=== PATIENT | female | born 1940 | race Hispanic/Latino ===

== ENCOUNTER → 2017-08-03 | Outpatient (CLI) | payer OTHER ==
[~2017-08-03] MED LIST: ALEN70TA2 PO; ALEN70TA47 PO; CHOL200074 PO; DULO30CA2 PO; DULO30CA51 PO; ENOX40DI8 SQ; FERR324T10 PO; GABA-529 PO; GLIP5POW MC; GLIP5TAB11 PO; HYDR-2132 PO; HYDR500C2 PO; LOSA50TA37 PO; METF10004 PO; METF500T6 PO; METO25TA3 PO; METO25TA6 PO; PRAV40TA3 PO; REGADENOSON 0.4 MG/5 ML PF SYG IVP ONE; TRAM-355 PO; TRAM1TAB PO; WARF7.5T49 PO
== END | disposition home or self-care (01) ==
LOC: SHCH 08:57
PROVIDERS: ATTEND Internal Medicine Cardiovascular Disease
DX: R06.02 Shortness of breath (principal)
CPT/HCPCS: 78452; 93017; 96374; A9500 ×2; J2785

== ENCOUNTER → 2017-08-09 | Outpatient (CLI) | payer OTHER ==
[~2017-08-09] MED LIST changes: -REGADENOSON 0.4 MG/5 ML PF SYG IVP ONE
== END | disposition home or self-care (01) ==
LOC: SHCH 10:32
PROVIDERS: ATTEND Internal Medicine Cardiovascular Disease
DX: R06.02 Shortness of breath (principal); Z95.2 Presence of prosthetic heart valve
CPT/HCPCS: 93306

== ENCOUNTER 2019-05-08 13:56 | Emergency (ER) | payer OTHER ==
[~2019-05-08 13:56] MED LIST changes: +ALEN70TA10 PO; -ALEN70TA47 PO; -DULO30CA51 PO; +DULO30CA52 PO; -LOSA50TA37 PO; +LOSA50TA64 PO; +METF-444 PO; +METF-446 PO; -METF10004 PO; -METF500T6 PO
[2019-05-08 15:00] LABS: BASOPHILS % (AUTO) 0.5 % (0.0-5.0); EOSINOPHILS % (AUTO) 1.1 % (0.0-8.0); HEMATOCRIT 35.9 % (36-48); LYMPHOCYTES % (AUTO) 12.5 % (21.0-51.0); MEAN CORPUSCULAR HEMOGLOBIN 31.5 pg (27.0-33.0); MEAN CORPUSCULAR HGB CONC 32.9 g/dL (32.0-36.0); MEAN CORPUSCULAR VOLUME 95.7 fL (79-99); MONOCYTES % (AUTO) 6.4 % (3.0-13.0); NEUTROPHILS % (AUTO) 79.3 % (40.0-77.0); PLATELET COUNT (AUTO) 318 K/uL (130-400); RED BLOOD CELL COUNT(AUTO) 3.75 MIL/uL (4.00-5.50); RED CELL DISTRIBUTION WIDTH 13.8 % (11.0-15.5); WHITE BLOOD COUNT (AUTO) 8.2 K/uL (4.8-10.8)
[2019-05-08 15:12] LABS: CREATININE 0.7 mg/dL (0.5-1.5); POTASSIUM 3.8 mmol/L (3.5-5.1)
[2019-05-08 15:16] LABS: BILIRUBIN,TOTAL 0.3 mg/dL (0.2-1.0); TOTAL PROTEIN, SERUM 7.4 g/dL (6.0-8.3)
[2019-05-08 15:17] LABS: INR 4.13 (0.85-1.15); PROTHROMBIN TIME 42.2 SEC (9.6-11.6)
[2019-05-08] MEDS ORDERED: KETOROLAC TROMETHAMINE 30MG/ML ONE (15:24)
== END 2019-05-08 16:48 | disposition home or self-care (01) ==
LOC: EDH 13:56
DX: M79.671 Pain in right foot (principal); I10 Essential (primary) hypertension; E11.9 Type 2 diabetes mellitus without complications
CPT/HCPCS: 36415; 71045; 73610; 73630; 80053; 82550; 84484; 85025; 85610; 85730; 93005; 93971; 96372; 99285; J1885

== ENCOUNTER → 2021-03-01 | Outpatient (CLI) | payer OTHER ==
[~2021-03-01] MED LIST changes: -ALEN70TA10 PO; -ALEN70TA2 PO; +ALEN70TA80 PO; +CA C1TAB95 PO; +CYAN50009 PO; +DAPA5TAB PO; -DULO30CA2 PO; +ENOX30DI4 SQ; -ENOX40DI8 SQ; -FERR324T10 PO; +FLUT1AER IH; -GABA-529 PO; -GLIP5TAB11 PO; -HYDR-2132 PO; -METF-446 PO; -METO25TA3 PO; -METO25TA6 PO; +ONDA4TAB10 PO; -TRAM-355 PO; -TRAM1TAB PO
== END | disposition home or self-care (01) ==
LOC: SHCH 14:38
PROVIDERS: ATTEND Internal Medicine Cardiovascular Disease
DX: I11.9 Hypertensive heart disease without heart failure (principal); I34.0 Nonrheumatic mitral (valve) insufficiency; E78.5 Hyperlipidemia, unspecified; Z95.2 Presence of prosthetic heart valve
CPT/HCPCS: 93306; 93356

== ENCOUNTER 2021-08-06 14:51 | Emergency (ER) | payer OTHER ==
[~2021-08-06] VITALS: Ht 162.6 cm; Wt 55.3 kg
[2021-08-06 15:20] LABS: BASOPHILS % (AUTO) 0.2 % (0.0-5.0); HEMATOCRIT 25.2 % (36-48); LYMPHOCYTES % (AUTO) 8.3 % (21.0-51.0); MEAN CORPUSCULAR HEMOGLOBIN 33.5 pg (27.0-33.0); MEAN CORPUSCULAR HGB CONC 32.9 g/dL (32.0-36.0); MEAN CORPUSCULAR VOLUME 101.6 fL (79-99); MONOCYTES % (AUTO) 6.2 % (3.0-13.0); NEUTROPHILS % (AUTO) 84.6 % (40.0-77.0); PLATELET COUNT (AUTO) 308 K/uL (130-400); RED BLOOD CELL COUNT(AUTO) 2.48 MIL/uL (4.00-5.50); RED CELL DISTRIBUTION WIDTH 13.7 % (11.0-15.5)
[2021-08-06] MEDS ORDERED: INSULIN HUMULIN R 100 UNIT/ML 3ML IV ONE (15:30)
[2021-08-06] MEDS ORDERED: 0.9%NACL 1000ML 1,000 ML IV SCH (15:30)
[2021-08-06 15:31] LABS: CREATININE 0.7 mg/dL (0.5-1.5)
[2021-08-06 15:35] LABS: ALBUMIN 3.4 g/dL (3.5-5.0); BILIRUBIN,TOTAL 0.4 mg/dL (0.2-1.0); MAGNESIUM 1.8 mg/dL (1.80-2.40); TOTAL PROTEIN, SERUM 6.7 g/dL (6.0-8.3)
[2021-08-06 15:43] LABS: B-TYPE NATRIURETIC PEPTIDE 166 pg/mL (0-100)
[2021-08-06 15:44] LABS: APPEARANCE,URINE Clear (CLEAR); BILIRUBIN,URINE Negative (NEGATIVE); COLOR,URINE Yellow (YELLOW); GLUCOSE, URINE (UA) >=1000 mg/dL (NEGATIVE); KETONES,URINE 40 mg/dL (NEGATIVE); LEUKOCYTE ESTERASE ,URINE Negative (NEGATIVE); NITRATE,URINE Positive (NEGATIVE); OCCULT BLOOD,URINE Negative (NEGATIVE); PH,URINE 5.5 (5.0-8.0); PROTEIN,URINE Trace mg/dL (NEGATIVE); UROBILINOGEN,URINE 0.2 mg/dL (0.2-1.0)
[2021-08-06 16:04] LABS: BACTERIA,URINE Rare /HPF (None Seen); SQUAMOUS EPITHELIAL CELL,UR Moderate /HPF (0-2); WBC,URINE 0-1 /HPF (0-1); YEAST,URINE BUDDING Few /HPF (None Seen)
[2021-08-06 16:05] LABS: MUCUS,URINE Few LPF (None Seen)
[2021-08-06] MEDS ORDERED: CEFTRIAXONE 1G VIAL ONE (16:13)
[2021-08-06] MEDS ORDERED: CEFTRIAXONE 1G VIAL IVP ONE (16:30)
[2021-08-06 16:31] VITALS: BP 109/52
[2021-08-06] MEDS ORDERED: CEPH500B PO (16:51)
== END 2021-08-06 16:57 | disposition home or self-care (01) ==
LOC: EDH 14:51
DX: E11.9 Type 2 diabetes mellitus without complications (principal); N39.0 Urinary tract infection, site not specified; E86.0 Dehydration; I25.10 Atherosclerotic heart disease of native coronary artery without angina pectoris; Z20.822 Contact with and (suspected) exposure to COVID-19; I11.0 Hypertensive heart disease with heart failure; I50.9 Heart failure, unspecified; Z95.818 Presence of other cardiac implants and grafts; Z79.899 Other long term (current) drug therapy; Z79.84 Long term (current) use of oral hypoglycemic drugs; Z79.01 Long term (current) use of anticoagulants; Z98.890 Other specified postprocedural states
CPT/HCPCS: 36415; 71045; 80053; 81001; 82550; 82948 ×2; 83735; 83880; 84484; 85025; 87077; 87088; 87186; 87635; 87804 ×2; 93005 ×2; 96361; 96374; 96375; 99285; C9803; J0696; J1815; J7030

== ENCOUNTER → 2022-01-16 | Outpatient (CLI) | payer OTHER ==
[~2022-01-16] MED LIST changes: +CEPH500B PO; +IOHEXOL 350 MG/ML 100ML INFUS..BTL IV ONE
== END | disposition home or self-care (01) ==
LOC: RAH 09:32
PROVIDERS: ATTEND Family Medicine
DX: K57.90 Diverticulosis of intestine, part unspecified, without perforation or abscess without bleeding (principal); R10.32 Left lower quadrant pain
CPT/HCPCS: 74178; Q9967

== ENCOUNTER 2022-01-31 16:35 | Emergency (ER) | payer OTHER ==
[~2022-01-31] VITALS: Ht 154.9 cm; Wt 64.9 kg
[~2022-01-31 16:35] MED LIST changes: -IOHEXOL 350 MG/ML 100ML INFUS..BTL IV ONE
[2022-01-31 19:00] VITALS: BP 128/68
[2022-01-31] MEDS ORDERED: ACET-66 PO (19:08)
== END 2022-01-31 19:21 | disposition home or self-care (01) ==
LOC: EDH 16:35
DX: S82.841A Displaced bimalleolar fracture of right lower leg, initial encounter for closed fracture (principal); E11.9 Type 2 diabetes mellitus without complications; I11.0 Hypertensive heart disease with heart failure; I50.9 Heart failure, unspecified; I25.10 Atherosclerotic heart disease of native coronary artery without angina pectoris; Z79.51 Long term (current) use of inhaled steroids; Z79.84 Long term (current) use of oral hypoglycemic drugs; Z95.2 Presence of prosthetic heart valve; Z79.899 Other long term (current) drug therapy; W01.0XXA Fall on same level from slipping, tripping and stumbling without subsequent striking against object, initial encounter; Y93.89 Activity, other specified; Y92.89 Other specified places as the place of occurrence of the external cause; Y99.8 Other external cause status
CPT/HCPCS: 29515; 73610

== ENCOUNTER 2023-02-18 21:11 | Emergency (ER) | payer OTHER ==
[~2023-02-18] VITALS: Ht 157.5 cm; Wt 54.4 kg
[~2023-02-18 21:11] MED LIST changes: +ACET-66 PO; +BENZ200C53 PO
[2023-02-18 21:43] LABS: BASOPHILS # (AUTO) 0.03 K/uL (0.00-0.20); BASOPHILS % (AUTO) 0.3 % (0.0-5.0); EOSINOPHILS # (AUTO) 0.16 K/uL (0.00-0.70); EOSINOPHILS % (AUTO) 1.8 % (0.0-8.0); HEMATOCRIT 36.6 % (36-48); IMMATURE GRANULOCYTE ABSOLUTE 0.05 K/uL (0-1); LYMPHOCYTES # (AUTO) 0.7 K/uL (1.0-4.8); LYMPHOCYTES % (AUTO) 8.3 % (21.0-51.0); MEAN CORPUSCULAR HEMOGLOBIN 34.1 pg (27.0-33.0); MEAN CORPUSCULAR HGB CONC 33.9 g/dL (32.0-36.0); MEAN CORPUSCULAR VOLUME 100.5 fL (79-99); MONOCYTES # (AUTO) 0.5 K/uL (0.1-1.0); NEUTROPHILS # (AUTO) 7.3 K/uL (1.8-7.7); PLATELET COUNT (AUTO) 348 K/uL (130-400); RED BLOOD CELL COUNT(AUTO) 3.64 MIL/uL (4.00-5.50); RED CELL DISTRIBUTION WIDTH 13.7 % (11.0-15.5); WHITE BLOOD COUNT (AUTO) 8.8 K/uL (4.8-10.8)
[2023-02-18 22:00] LABS: SARS-CoV-2, RNA, NAAT NEGATIVE SARS CoV-2 (NEGATIVE)
[2023-02-18 22:00] LABS: ALBUMIN 3.5 g/dL (3.5-5.0); BILIRUBIN,TOTAL 0.3 mg/dL (0.2-1.0); CREATININE 0.9 mg/dL (0.5-1.5); POTASSIUM 5.3 mmol/L (3.5-5.1); TOTAL PROTEIN, SERUM 7.5 g/dL (6.0-8.3)
[2023-02-18 22:05] LABS: INFLUENZA TYPE A Negative For Type A (NEGATIVE); INFLUENZA TYPE B Negative For Type B (NEGATIVE)
[2023-02-18 22:17] LABS: ADD UA MICROSCOPIC YES; APPEARANCE,URINE CLEAR (CLEAR); BILIRUBIN,URINE NEGATIVE (NEGATIVE); COLOR,URINE COLORLESS (YELLOW); GLUCOSE, URINE (UA) >=1000 mg/dL (NEGATIVE); KETONES,URINE 10 mg/dL (NEGATIVE); LEUKOCYTE ESTERASE ,URINE NEGATIVE Leu/uL (NEGATIVE); NITRATE,URINE 1+ (NEGATIVE); PROTEIN,URINE NEGATIVE (NEGATIVE); UROBILINOGEN,URINE 0.2 mg/dL (0.2-1.0)
[2023-02-18 22:19] LABS: BACTERIA,URINE FEW /HPF (None Seen); MUCUS,URINE RARE LPF (None Seen)
[2023-02-18] MEDS ORDERED: ALBUTEROL 0.083% 2.5 MG/3 ML INH IH ONE (23:00)
[2023-02-18] MEDS ORDERED: ACETAMINOPHEN 325 MG TAB ONE (23:04)
[2023-02-18 23:22] VITALS: PULSE 92; RESP 18
[2023-02-18] MEDS ORDERED: ACETAMINOPHEN 325 MG TAB PO ONE (23:30)
[2023-02-18] MEDS ORDERED: ALBUHFA IH (23:43)
[2023-02-18] MEDS ORDERED: AUD IH (23:43)
[2023-02-18 23:54] VITALS: BP 140/49; PULSE 88; RESP 21; O2SAT 96
[2023-02-18 23:58] VITALS: TEMP 99.4
== END 2023-02-19 00:04 | disposition home or self-care (01) ==
LOC: EDH 21:11
DX: J98.01 Acute bronchospasm (principal); E11.65 Type 2 diabetes mellitus with hyperglycemia; J06.9 Acute upper respiratory infection, unspecified; R05.9 Cough, unspecified; E78.00 Pure hypercholesterolemia, unspecified; I48.91 Unspecified atrial fibrillation; Z79.51 Long term (current) use of inhaled steroids; Z79.84 Long term (current) use of oral hypoglycemic drugs; Z79.899 Other long term (current) drug therapy; Z20.822 Contact with and (suspected) exposure to COVID-19
CPT/HCPCS: 99285; 71045; 87635; 84484; 80053; 83880; 83690; 85025; 87077 ×2; 87088; 87186 ×2; 87804 ×2; 81001; 36415; 93005; 94640; C9803

== ENCOUNTER → 2023-05-19 | Outpatient (CLI) | payer OTHER ==
[~2023-05-19] MED LIST changes: +ALBUHFA IH; +AUD IH
== END ==
LOC: SHCH 09:31
PROVIDERS: ATTEND Internal Medicine Cardiovascular Disease
DX: I87.1 Compression of vein (principal); I87.2 Venous insufficiency (chronic) (peripheral)
CPT/HCPCS: 93925; 93970

== ENCOUNTER → 2023-05-26 | Outpatient (CLI) | payer OTHER | END | disposition home or self-care (01) | LOC: SHCH 08:46 | PROVIDERS: ATTEND Internal Medicine Cardiovascular Disease | DX: I08.2 Rheumatic disorders of both aortic and tricuspid valves (principal); R07.9 Chest pain, unspecified; R06.09 Other forms of dyspnea | CPT/HCPCS: 93306 ==

== ENCOUNTER → 2023-08-14 | Outpatient (CLI) | payer OTHER ==
[~2023-08-14] MED LIST changes: +ONDA-243 PO; -ONDA4TAB10 PO
[2023-08-14 12:32] LABS: INR 1.42 (0.85-1.15); PROTHROMBIN TIME 16.3 SEC (9.6-11.6)
== END | disposition home or self-care (01) ==
LOC: LAB 09:15
PROVIDERS: ATTEND Internal Medicine Cardiovascular Disease
DX: I71.40 Abdominal aortic aneurysm, without rupture, unspecified (principal)
CPT/HCPCS: 36415; 85610

== ENCOUNTER → 2023-08-21 | Outpatient (CLI) | payer OTHER ==
[2023-08-21 17:22] LABS: INR 1.85 (0.85-1.15)
== END | disposition home or self-care (01) ==
LOC: LAB 15:29
PROVIDERS: ATTEND Internal Medicine Cardiovascular Disease
DX: Z79.01 Long term (current) use of anticoagulants (principal)
CPT/HCPCS: 36415; 85610

== ENCOUNTER → 2023-08-31 | Outpatient (CLI) | payer OTHER ==
[2023-08-31 15:29] LABS: INR 1.52 (0.85-1.15); PROTHROMBIN TIME 15.9 SEC (9.6-11.6)
== END | disposition home or self-care (01) ==
LOC: LAB 11:33
PROVIDERS: ATTEND Internal Medicine Cardiovascular Disease
DX: Z79.01 Long term (current) use of anticoagulants (principal)
CPT/HCPCS: 36415; 85610

== ENCOUNTER → 2023-09-10 | Outpatient (CLI) | payer OTHER ==
[2023-09-10 16:33] LABS: INR 1.77 (0.85-1.15); PROTHROMBIN TIME 18.3 SEC (9.6-11.6)
== END | disposition home or self-care (01) ==
LOC: LAB 12:04
PROVIDERS: ATTEND Internal Medicine Cardiovascular Disease
DX: Z79.01 Long term (current) use of anticoagulants (principal)
CPT/HCPCS: 36415; 85610

== ENCOUNTER 2023-12-04 10:21 | Observation (INO) | payer OTHER ==
[~2023-12-04] VITALS: Ht 180.3 cm; Wt 50.8 kg
[2023-12-04 10:59] LABS: BASOPHILS # (AUTO) 0.05 K/uL (0.00-0.20); BASOPHILS % (AUTO) 0.6 % (0.0-5.0); EOSINOPHILS # (AUTO) 0.18 K/uL (0.00-0.70); EOSINOPHILS % (AUTO) 2.3 % (0.0-8.0); HEMATOCRIT 37.9 % (36-48); IMMATURE GRANULOCYTE ABSOLUTE 0.03 K/uL (0-1); LYMPHOCYTES # (AUTO) 1.3 K/uL (1.0-4.8); LYMPHOCYTES % (AUTO) 15.8 % (21.0-51.0); MEAN CORPUSCULAR HEMOGLOBIN 32.7 pg (27.0-33.0); MEAN CORPUSCULAR VOLUME 99.2 fL (79-99); MONOCYTES # (AUTO) 0.6 K/uL (0.1-1.0); MONOCYTES % (AUTO) 7.1 % (3.0-13.0); NEUTROPHILS # (AUTO) 5.9 K/uL (1.8-7.7); NEUTROPHILS % (AUTO) 73.8 % (40.0-77.0); PLATELET COUNT (AUTO) 342 K/uL (130-400); RED BLOOD CELL COUNT(AUTO) 3.82 MIL/uL (4.00-5.50); RED CELL DISTRIBUTION WIDTH 15.5 % (11.0-15.5)
[2023-12-04 11:11] LABS: CREATININE 0.5 mg/dL (0.5-1.0); POTASSIUM 4.4 mmol/L (3.5-5.1)
[2023-12-04 12:56] LABS: PARTIAL THROMBOPLASTIN TIME 42.7 SEC (26.3-35.5)
[2023-12-04 13:10] LABS: PROTHROMBIN TIME 60.4 SEC (9.6-11.6)
[2023-12-04 13:11] LABS: INR 6.42 (0.85-1.15)
[2023-12-04] MEDS ORDERED: SEMA3TAB4 PO (15:20)
[2023-12-04] MEDS ORDERED: ATOR40TA69 PO (15:20)
[2023-12-04] MEDS ORDERED: METO-408 PO (15:20)
[2023-12-04] MEDS ORDERED: WARF10TA45 PO (15:20)
[2023-12-04] MEDS ORDERED: EMPA25TA PO (15:20)
[2023-12-04] MEDS ORDERED: GLIP5TAB15 PO (15:20)
[2023-12-04] MEDS ORDERED: LOSA25TA41 PO (15:20)
[2023-12-04 15:32] LABS: INR 6.1 (0.85-1.15); PROTHROMBIN TIME 57.6 SEC (9.6-11.6)
[2023-12-04 17:25] VITALS: O2SAT 97
[2023-12-04 19:04] VITALS: BP 165/82; PULSE 82; RESP 20; TEMP 97.3
[2023-12-04 20:00] VITALS: BP 167/70; PULSE 78; RESP 16; TEMP 97.4; O2SAT 97
[2023-12-04 23:37] LABS: PARTIAL THROMBOPLASTIN TIME 42.3 SEC (26.3-35.5)
[2023-12-04 23:44] VITALS: BP 155/70; PULSE 61; RESP 20; TEMP 98.1
[2023-12-05 00:17] LABS: INR 5.68 (0.85-1.15)
[2023-12-05 00:18] LABS: PROTHROMBIN TIME 53.9 SEC (9.6-11.6)
[2023-12-05] MEDS: PHYTONADIONE 10 MG in 0.9%NACL 50ML 50 ML IVPB ONE (01:24)
[2023-12-05] MEDS ORDERED: ondanSETRON 4MG INJ IVP PRN (03:00)
[2023-12-05] MEDS ORDERED: acetaMINOPHEN 325 MG TAB PO PRN (03:00)
[2023-12-05] MEDS ORDERED: TEMAZepam 15 MG CAPSULE PO PRN (03:00)
[2023-12-05] MEDS ORDERED: acetaMINOPHEN 650 MG SUPPOSITORY RC PRN (03:00)
[2023-12-05] MEDS ORDERED: doCUSate SODIUM 100 MG CAP PO PRN (03:00)
[2023-12-05] MEDS ORDERED: LACTULOSE 20 GM/30 ML UDCUP PO PRN (03:00)
[2023-12-05] MEDS ORDERED: hydrALAZine 20MG/ML VIAL IV PRN (03:00)
[2023-12-05 04:00] VITALS: BP 167/75; PULSE 68; RESP 18; TEMP 98
[2023-12-05 06:14] LABS: BASOPHILS # (AUTO) 0.04 K/uL (0.00-0.20); BASOPHILS % (AUTO) 0.6 % (0.0-5.0); EOSINOPHILS # (AUTO) 0.16 K/uL (0.00-0.70); EOSINOPHILS % (AUTO) 2.3 % (0.0-8.0); HEMATOCRIT 36.7 % (36-48); IMMATURE GRANULOCYTE ABSOLUTE 0.02 K/uL (0-1); LYMPHOCYTES # (AUTO) 1.1 K/uL (1.0-4.8); LYMPHOCYTES % (AUTO) 15.5 % (21.0-51.0); MEAN CORPUSCULAR HEMOGLOBIN 31.8 pg (27.0-33.0); MEAN CORPUSCULAR HGB CONC 32.4 g/dL (32.0-36.0); MEAN CORPUSCULAR VOLUME 98.1 fL (79-99); MONOCYTES # (AUTO) 0.5 K/uL (0.1-1.0); NEUTROPHILS # (AUTO) 5.3 K/uL (1.8-7.7); NEUTROPHILS % (AUTO) 74.3 % (40.0-77.0); PLATELET COUNT (AUTO) 361 K/uL (130-400); RED BLOOD CELL COUNT(AUTO) 3.74 MIL/uL (4.00-5.50); RED CELL DISTRIBUTION WIDTH 15.2 % (11.0-15.5); WHITE BLOOD COUNT (AUTO) 7.1 K/uL (4.8-10.8)
[2023-12-05 06:22] LABS: B-TYPE NATRIURETIC PEPTIDE 432 pg/mL (0-100)
[2023-12-05 06:30] LABS: CREATININE 0.6 mg/dL (0.5-1.0); MAGNESIUM 1.7 mg/dL (1.80-2.40); PHOSPHORUS 4.3 mg/dL (2.5-4.9)
[2023-12-05 06:38] LABS: HEMOGLOBIN A1C 8.9 % (4.0-6.0)
[2023-12-05] MEDS: MAGNESIUM 2GM PREMIX 50ML 50 ML IV PRN (07:35)
[2023-12-05 07:39] LABS: INR 2.04 (0.85-1.15); PROTHROMBIN TIME 20.9 SEC (9.6-11.6)
[2023-12-05 08:00] VITALS: BP 148/67; PULSE 65; RESP 18; TEMP 97.6; O2SAT 100
[2023-12-05 12:00] VITALS: BP 163/72; PULSE 59; RESP 18; TEMP 97.6
== END 2023-12-05 15:43 | disposition home or self-care (01) ==
LOC: EDH 10:21 → OBSVTOIN 14:44 → INTOOBSV 14:44 → EDHIP 14:44 → 4DH 17:25
PROVIDERS: ADMIT Internal Medicine Critical Care Medicine; ATTEND Internal Medicine Critical Care Medicine
DX: E11.65 Type 2 diabetes mellitus with hyperglycemia (principal); I10 Essential (primary) hypertension; I48.91 Unspecified atrial fibrillation; E78.00 Pure hypercholesterolemia, unspecified; R79.1 Abnormal coagulation profile; Z79.01 Long term (current) use of anticoagulants; Z95.2 Presence of prosthetic heart valve; Z79.899 Other long term (current) drug therapy; Z98.890 Other specified postprocedural states
CPT/HCPCS: 99285; 71045; 84484; 80048 ×2; 83880 ×2; 85025 ×2; 85378; 85610 ×4; 85730 ×2; 82948 ×4; 36415 ×2; 73590; 93005; 96366; 96365; 96375; 83036; 84443; 83735; 84100; G0378; J3475; J3430

== ENCOUNTER 2024-03-18 14:14 | Emergency (ER) | payer OTHER ==
[~2024-03-18] VITALS: Ht 157.5 cm; Wt 69.4 kg
[~2024-03-18 14:14] MED LIST changes: -ACET-66 PO; +ATOR40TA69 PO; -BENZ200C53 PO; -CEPH500B PO; -DAPA5TAB PO; +EMPA25TA PO; -ENOX30DI4 SQ; -FLUT1AER IH; -GLIP5POW MC; +GLIP5TAB15 PO; +LOSA25TA41 PO; -LOSA50TA64 PO; +METO-408 PO; -ONDA-243 PO; -PRAV40TA3 PO; +SEMA3TAB4 PO; +WARF10TA45 PO; -WARF7.5T49 PO
--- NOTE | 2024-03-18 14:33 | ERN ---
ED Note History of Present Illness Stated Complaint: FELL, LACERATION Chief Complaint: Mechanical Fall Time Seen by MD: 14:15 Dictation: Patient is a 83-year-old female with a past medical history of diabetes, hypertension, atrial fibrillation, CAD, ordered valve replacement, on Coumadin. Patient brought to the ER after slip and fall at home. Patient described that she was sleeping in the bed and when she would try to wake up she slipped and fell forward hitting her head. She denied loss of consciousness. Patient has a laceration in the supraciliary arch left side, which she described that was bleeding, but has stopped at moment of my evaluation in the emergency department. Allergies: Coded Allergies: No Known Drug Allergies (Verified Allergy, Unknown, 12/05/23) Home Meds Active Scripts Acetaminophen (Tylenol) 500 Mg Tab, 1 TAB PO Q6HPRN PRN for pain or fever for 4 Days, #20 TAB 0 Refills Prov:RAUL KHANNA MD 03/18/24 Albuterol Sulfate (Ventolin Hfa/Proventil Hfa/Proair Hfa) 90 Mcg Puff, 2 PUFF IH Q4H for WHEEZING, #1 INHALER 0 Refills Prov:ZOILA BAGLEY NP 02/18/23 Albuterol Sulfate (Albuterol Sulfate) 2.5 Mg/0.5 Ml Vial.neb, 2.5 MG IH Q6H for wheezing/sob, #20 INH 0 Refills Prov:ZOILA BAGLEY NP 02/18/23 Reported Medications Atorvastatin Calcium (LIPITOR) 40 Mg Tablet, 1 TAB PO DAILY for 30 Days, #30 TAB 0 Refills 12/04/23 Glipizide (Glipizide) 5 Mg Tablet, 1 TAB PO BID for 30 Days, #60 TAB 0 Refills 12/04/23 Metoprolol Succinate (Metoprolol Succinate) 25 Mg Tab.er.24h, 1 TAB PO DAILY for 30 Days, #30 TAB 0 Refills 12/04/23 Semaglutide (Rybelsus) 3 Mg Tablet, 1 TAB PO DAILY for 30 Days, #30 TAB 0 Refills 12/04/23 Empagliflozin (Jardiance) 25 Mg Tablet, 1 TAB PO DAILY for 30 Days, #30 TAB 0 Refills 12/04/23 Warfarin Sodium (Warfarin Sodium) 10 Mg Tablet, 1 TAB PO DAILY for 30 Days, #30 TAB 0 Refills 12/04/23 Losartan Potassium (Losartan Potassium) 25 Mg Tablet, 1 TAB PO DAILY for 30 Days, #30 TAB 0 Refills 12/04/23 Ca Carbonate/Vitamin D3/Vit K (Calcium + D Soft Chewable Tab) 1 Each Tab.chew, 1 EACH PO DAILY, TAB.CHEW 07/30/19 Cyanocobalamin (Vitamin B-12) (Vitamin B12) 5,000 Mcg Tab.rapdis, 1000 MCG PO DAILY, TAB 07/30/19 Alendronate Sodium (Alendronate Sodium) 70 Mg Tablet, 70 MG PO QWEEK for on sunday, TAB 02/12/16 Cholecalciferol (Vitamin D3) (Vitamin D-3) 2,000 Unit Capsule, 1000 UNIT PO DAILY, CAP 02/12/16 Metformin HCl (Metformin HCl) 500 Mg Tablet, 1000 MG PO BIDMEALS, TAB 02/12/16 Duloxetine HCl (Duloxetine HCl) 30 Mg Capsule.dr, 30 MG PO DAILY, CAP 02/12/16 Hydroxyurea (Hydroxyurea) 500 Mg Capsule, 500 MG PO DAILY, CAP 12/17/15 Past Medical History Past Medical History: A-Fib, Diabetes-Type II, High Cholesterol, Hypertension Surgical History: Other Surgical History Other: HX OF HEART REPLACEMENT Family History: Negative Social History: Negative History: Not Applicable Review of System Dictation NEGATIVE EXCEPT PER HPI Constitutional: Negative for fever,chills, and weight loss Eyes: Negative for injury, pain,redness, and discharge ENT: Negative for injury,pain or swelling Cardiovascular: denies chest pain, palpitations, and edema Respiratory: Negative for shortness of breath, cough, and wheezing, Abdomen/GI: Negative for abdominal pain, nausea, vomiting, diarrhea, and constipation Back: Negative for injury and pain : Negative for injury, bleeding and discharge MS/Extremity: Negative for injury and deformity Skin: Negative for rash, and discoloration Neuro: Negative for headache, weakness, numbness, tingling, and seizure Psych: Negative for suicide ideation, homicidal ideation, and hallucinations Initial Vital Sign VS Vital Signs Date Time Temp Pulse Resp B/P (MAP) Pulse Ox O2 Delivery O2 Flow Rate FiO2 03/18/24 14:24 98.1 78 20 85 Room Air 0 Physical Exam Dictation General: awake, alert, NAD Head/Face: Normocephalic, atraumatic Eyes: PERRL, EOMI, vision at baseline ENT: oral cavity clear, TMs clear, no signs of infection Neck: Trachea midline, supple, no nuchal rigidity Cardiovascular: RRR, normal S1/S2, No MRGs, no JVD Respiratory: CTAB, no respiratory distress, No rales or wheezes Abdomen: Soft , no tender Skin: Warm, dry, normal turgor, no rash. Small laceration in the supraciliary arch, left side MS/Extremity: Pulses equal, no cyanosis, neurovascular intact, FROM Neuro: COAx4, GCS 15, strength 5/5, CN 2-12 intact, normal cerebellar exam, normal gait, Psych: Normal behavior, mood, and affect normal Results (Laboratory/Radiology) Laboratory/Radiology Laboratory Tests Test 03/18/24 14:55 White Blood Count 8.0 K/uL (4.8-10.8) Red Blood Count 4.00 MIL/uL (4.00-5.50) Hemoglobin 12.8 g/dL (12.0-16.0) Hematocrit 39.4 % (36-48) Mean Corpuscular Volume 98.5 fL (79-99) Mean Corpuscular Hemoglobin 32.0 pg (27.0-33.0) Mean Corpuscular Hemoglobin Concent 32.5 g/dL (32.0-36.0) Red Cell Distribution Width 15.4 % (11.0-15.5) Platelet Count 492 K/uL (130-400) H Mean Platelet Volume 9.8 fL (7.5-10.5) Immature Granulocyte % (Auto) 0.4 % (0-1) Neutrophils (%) (Auto) 79.4 % (40.0-77.0) H Lymphocytes (%) (Auto) 11.7 % (21.0-51.0) L Monocytes (%) (Auto) 6.7 % (3.0-13.0) Eosinophils (%) (Auto) 1.4 % (0.0-8.0) Basophils (%) (Auto) 0.4 % (0.0-5.0) Neutrophils # (Auto) 6.3 K/uL (1.8-7.7) Lymphocytes # (Auto) 0.9 K/uL (1.0-4.8) L Monocytes # (Auto) 0.5 K/uL (0.1-1.0) Eosinophils # (Auto) 0.11 K/uL (0.00-0.70) Basophils # (Auto) 0.03 K/uL (0.00-0.20) Absolute Immature Granulocyte (auto 0.03 K/uL (0-1) Nucleated Red Blood Cells 0.0 % (0.0-0.19) Prothrombin Time 35.9 SEC (9.6-11.6) *H Prothromb Time International Ratio 3.64 (0.85-1.15) *H Activated Partial Thromboplast Time 37.6 SEC (26.3-35.5) H Sodium Level 136 mmol/L (136-145) Potassium Level 3.9 mmol/L (3.5-5.1) Chloride Level 98 mmol/L (101-111) L Carbon Dioxide Level 31 mmol/L (21-32) Blood Urea Nitrogen 20 mg/dL (7-18) H Creatinine 0.5 mg/dL (0.5-1.0) Glomerular Filtration Rate Calc 94 mL/min (>90) Random Glucose 165 mg/dL (70-105) H Total Calcium 9.5 mg/dL (8.5-10.1) EKG Comment: Rate 72 on AFib control Inferior infarct, old Anterior Q-waves, possibly due to LVH QT 417 ED Course ED Course Orders Procedure Category Date Status Time Cbc With Differential LAB 03/18/24 Complete 14:24 Basic Metabolic Panel LAB 03/18/24 Complete 14:24 Pt And Ptt LAB 03/18/24 Complete 14:24 Ct Head/Brain W/O CT 03/18/24 Resulted Contrast 14:24 Ct Cervical Spine W/O CT 03/18/24 Resulted Contrast 14:24 Acetaminophen 500mg PHA 03/18/24 Complete Tab (Tylenol 500mg T 15:00 Dermabond (Dermabond) PHA 03/18/24 In Process 15:30 Hip Bilat 2vw RAD 03/18/24 Resulted 16:10 12 Lead Ekg Tracing- EKG 03/18/24 Logged Technical 16:43 Current Medications Medications (Trade) Dose Ordered Sig/Emeli Route PRN Reason Start Time Stop Time Status Last Admin Dose Admin Acetaminophen (TYLenol 500MG TAB) 500 mg ONCE ONCE PO 03/18/24 15:00 03/18/24 15:01 DC 03/18/24 15:18 Octyl Cyanoacrylate (Dermabond) 1 each ONCE TP 03/18/24 15:30 04/17/24 15:29 03/18/24 15:18 Vital Signs Date Time Temp Pulse Resp B/P (MAP) Pulse Ox O2 Delivery O2 Flow Rate FiO2 03/18/24 14:24 98.1 78 20 85 Room Air 0 Medical Decision Making MDM 83-year-old female status post fall on Coumadin, no loss of consciousness. Has a small laceration in the supraciliary area. Fall/hit head on Coumadin -INR check -CT head and neck without contrast. Facial Laceration -clean the area and apply Dermabond. Pain medication p.r.n. Tylenol. CT images reviewed no acute abnormalities reports for the head ordered neck. Laboratory reviewed no acute abnormality INR 3.64, patient on Coumadin due to heart valve replacement. CT HEAD/BRAIN W/O CONTRAST HISTORY: Status post fall COMPARISON: None TECHNIQUE: Multiple sequential axial images of the head were obtained from the base of the skull through vertex. Patient was not given contrast through intravenous route. FINDINGS: The ventricles and extraventricular CSF spaces are dilated consistent with cerebral atrophy. Nonspecific white matter changes seen. Old encephalomalacia changes are seen in the right frontal lobe. There is no midline shift, mass effect or herniation. No acute intracranial bleed is seen. Visualized portion of the paranasal sinuses are grossly within normal limits. IMPRESSION: 1. No acute intracranial bleed is seen. 2. Atrophy with white matter changes. HIP BILAT 2VW HISTORY: Status post fall COMPARISON: None TECHNIQUE: 3 images of bilateral hips were obtained. FINDINGS: Bilateral hip prosthesis are seen. Postop changes are seen of the lumbar spine. There is no acute displaced fracture or dislocation. Degenerative changes are seen. IMPRESSION: 1. Findings as described above. Procedure Procedure Dictation: 2 cm supraciliary laceration, the area was irrigated and cleaned. Dermabond was applied DX & DISP Disposition: Discharge Departure Impression: Primary Impression: Fall (on) (from) other stairs and steps, initial encounter Additional Impressions: Laceration, Facial laceration, Anticoagulated on Coumadin Critical Time: 45 minutes Condition: Stable Scripts Acetaminophen (Tylenol) 500 Mg Tab 1 TAB PO Q6HPRN PRN for pain or fever for 4 Days, #20 TAB 0 Refills Prov: RAUL KHANNA MD 03/18/24 Additional Instructions: RETURN TO ER FOR ANY ACUTE OR WORSENING SYMPTOMS. FOLLOW-UP IN 1-2 DAYS WITH PRIMARY PROVIDER FOR RECHECK OF TODAY'S SYMPTOMS. Referrals: CHRISTOPHE POLANCO MD (PCP) Time of Disposition: 16:02 RAUL KHANNA MD Mar 18, 2024 14:33
--- NOTE | 2024-03-18 14:59 | HMCIMG ---
CT HEAD/BRAIN W/O CONTRAST HISTORY: Status post fall COMPARISON: None TECHNIQUE: Multiple sequential axial images of the head were obtained from the base of the skull through vertex. Patient was not given contrast through intravenous route. FINDINGS: The ventricles and extraventricular CSF spaces are dilated consistent with cerebral atrophy. Nonspecific white matter changes seen. Old encephalomalacia changes are seen in the right frontal lobe. There is no midline shift, mass effect or herniation. No acute intracranial bleed is seen. Visualized portion of the paranasal sinuses are grossly within normal limits. IMPRESSION: 1. No acute intracranial bleed is seen. 2. Atrophy with white matter changes. CT was performed with one or more following dose reduction techniques: automated exposure control, adjustment of the mA and kv according to patient's size, or use of a iterative reconstruction technique.
--- NOTE | 2024-03-18 14:59 | HMCIMG ---
CT CERVICAL SPINE W/O CONTRAST HISTORY: Status post fall COMPARISON: None TECHNIQUE: Multiple sequential axial images of the cervical spine were obtained including post processing sagittal and coronal reconstruction images. Patient was not given contrast through intravenous route. FINDINGS: There is reversal of normal lordotic cervical curvature which may be related to muscle spasm or positioning. Disc space narrowing is seen at C4-5, C5-6 and C6-7 levels. There are degenerative changes in cervical spine spondylosis. There is no loss of vertebral height. Evaluation for disc and cord pathology is limited with CT study. No evidence of fracture or dislocation is seen. IMPRESSION: 1. No fracture is seen. DJD. CT was performed with one or more following dose reduction techniques: automated exposure control, adjustment of the mA and kv according to patient's size, or use of a iterative reconstruction technique.
[2024-03-18 15:08] LABS: BASOPHILS # (AUTO) 0.03 K/uL (0.00-0.20); BASOPHILS % (AUTO) 0.4 % (0.0-5.0); EOSINOPHILS # (AUTO) 0.11 K/uL (0.00-0.70); EOSINOPHILS % (AUTO) 1.4 % (0.0-8.0); HEMATOCRIT 39.4 % (36-48); IMMATURE GRANULOCYTE ABSOLUTE 0.03 K/uL (0-1); LYMPHOCYTES # (AUTO) 0.9 K/uL (1.0-4.8); LYMPHOCYTES % (AUTO) 11.7 % (21.0-51.0); MEAN CORPUSCULAR HGB CONC 32.5 g/dL (32.0-36.0); MEAN CORPUSCULAR VOLUME 98.5 fL (79-99); MONOCYTES # (AUTO) 0.5 K/uL (0.1-1.0); MONOCYTES % (AUTO) 6.7 % (3.0-13.0); NEUTROPHILS # (AUTO) 6.3 K/uL (1.8-7.7); NEUTROPHILS % (AUTO) 79.4 % (40.0-77.0); PLATELET COUNT (AUTO) 492 K/uL (130-400); RED CELL DISTRIBUTION WIDTH 15.4 % (11.0-15.5)
[2024-03-18 15:18] LABS: CREATININE 0.5 mg/dL (0.5-1.0); POTASSIUM 3.9 mmol/L (3.5-5.1)
[2024-03-18] MEDS: OCTYL 2-CYANOACRYLATE 1 EACH TP SCH (15:18)
[2024-03-18] MEDS: acetaMINOPHEN 500 MG TABLET PO ONE (15:18)
[2024-03-18 15:22] LABS: PARTIAL THROMBOPLASTIN TIME 37.6 SEC (26.3-35.5)
[2024-03-18 15:27] LABS: INR 3.64 (0.85-1.15); PROTHROMBIN TIME 35.9 SEC (9.6-11.6)
[2024-03-18] MEDS ORDERED: ACET-66 PO (16:02)
--- NOTE | 2024-03-18 16:30 | HMCIMG ---
HIP BILAT 2VW HISTORY: Status post fall COMPARISON: None TECHNIQUE: 3 images of bilateral hips were obtained. FINDINGS: Bilateral hip prosthesis are seen. Postop changes are seen of the lumbar spine. There is no acute displaced fracture or dislocation. Degenerative changes are seen. IMPRESSION: 1. Findings as described above.
[2024-03-18 17:04] VITALS: BP 140/63; PULSE 64; RESP 18; TEMP 98.5; O2SAT 100
--- NOTE | 2024-03-19 07:07 | EKG ---
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
== END 2024-03-18 17:17 | disposition home or self-care (01) ==
LOC: EDH 14:14
DX: S01.81XA Laceration without foreign body of other part of head, initial encounter (principal); E78.00 Pure hypercholesterolemia, unspecified; I10 Essential (primary) hypertension; Z04.3 Encounter for examination and observation following other accident; E11.9 Type 2 diabetes mellitus without complications; Z79.01 Long term (current) use of anticoagulants; Z79.64 Long term (current) use of myelosuppressive agent; Z79.84 Long term (current) use of oral hypoglycemic drugs; Z79.899 Other long term (current) drug therapy; W01.0XXA Fall on same level from slipping, tripping and stumbling without subsequent striking against object, initial encounter; Y93.01 Activity, walking, marching and hiking; Y92.89 Other specified places as the place of occurrence of the external cause; Y99.8 Other external cause status
CPT/HCPCS: 12011; 36415; 70450; 72125; 73521; 80048; 85025; 85610; 85730; 93005; 99284